=== PATIENT | female | born 1940 | race Caucasian/White ===

== ENCOUNTER → 2016-12-10 | Outpatient (CLI) | payer MEDICARE, BC ==
--- NOTE | 2016-12-11 08:55 | RADRPT ---
PROCEDURE: XR pelvis and right hip. CLINICAL INDICATION: PAIN TECHNIQUE: AP pelvis, AP and frog lateral views of the right hip were performed. COMPARISON: None. FINDINGS: There is normal mineralization and alignment. No acute fracture or osseous lesion is identified. There is mild narrowing of bilateral hip joints. The soft tissues are unremarkable. RPTAT: AA IMPRESSION: Mild narrowing of bilateral hip joints. Physician Huy Date Time Electronically viewed and signed by Lee Beckwith Physician on 12/11/2016 08:55 RA/
--- NOTE | 2016-12-11 08:57 | RADRPT ---
PROCEDURE: Bilateral knee x-ray CLINICAL INDICATION: PAIN TECHNIQUE: AP, lateral, and sunrise views of bilateral knees were obtained. COMPARISON: None FINDINGS: There is normal osseous mineralization. There is no acute fracture. Soft tissue structures are unremarkable. There is mild narrowing of the medial compartment of the right knee. There is mild narrowing of the medial compartment of the left knee. RPTAT: AA IMPRESSION: Mild narrowing of the medial compartments of bilateral knees. Physician Huy Date Time Electronically viewed and signed by Physician uHy on 12/11/2016 08:56 RA/
== END | disposition home or self-care (01) ==
LOC: HKI 09:14
PROVIDERS: ATTEND Orthopaedic Surgery
DX: M22.41 Chondromalacia patellae, right knee (principal); M22.42 Chondromalacia patellae, left knee; M25.562 Pain in left knee; M25.561 Pain in right knee; M51.36 Other intervertebral disc degeneration, lumbar region; M54.16 Radiculopathy, lumbar region
CPT/HCPCS: 73502; 73522; 73564; G0463